=== PATIENT | male | born 1960 | race Caucasian/White ===

== ENCOUNTER 2017-06-11 18:18 | Emergency (ER) | payer SELFPAY ==
[~2017-06-11 18:18] MED LIST: CIPR500T4 PO; LORA-474 PO
[2017-06-11 18:20] VITALS: BP 168/103; PULSE 102; RESP 20; TEMP 97.8; O2SAT 96
--- NOTE | 2017-06-11 18:39 | PD ---
Physical Exam Time Seen by Provider: 18:37 Narrative 56 y/o male here for evaluation of several months duration of a yellow- appearing tongue as well as reddened skin on the neck for several months. This has been worked up by Dr. Gandhi as an outpatient and he reports no dx has been made. Vital signs reviewed. Seen at triage desk. Awaiting bed placement. Data Data Last Documented VS Vital Signs Date Time Temp Pulse Resp B/P Pulse Ox O2 Delivery O2 Flow Rate FiO2 06/11/17 18:20 97.8 102 20 168/103 96 Room Air [facility] Medical Record Reviewed: Yes Supervised Visit with MARISOL: No Solomon Liu Jun 11, 2017 18:39
[2017-06-11] MEDS ORDERED: LORA-474 PO (18:44)
--- NOTE | 2017-06-11 19:10 | PD ---
HPI Chief Complaint: Oral / Dental Pain or Problem Time Seen by Provider: 18:41 Travel History International Travel<30 days: No Contact w/Intl Traveler<30days: No Traveled to known affect area: No History of Present Illness HPI 56-year-old male here for evaluation of yellow tongue as well as redness to his bilateral legs and right neck. Patient reports that the symptoms have been going on for the last several months. He reports that he was seen by infectious disease Dr. Gandhi. He states that she started him on fluconazole which seemed to help his tongue appearance slightly, however it did not completely resolve. He reports that she tested him for HIV and it was negative. He denies any HIV exposures. He also presents with blood work that was done on 03/12/17 and shows a completely normal CBC and CMP. He is frustrated because he would like the yellow coloration to his tongue to go away. He is a nonsmoker. PFSH Past Medical History Anxiety: Yes (STATES,HAS BEEN TOLD HE HAS ANXIETY) Diminished Hearing: No Psychiatric: Yes Past Surgical History Surgical History: No Previous Surgery Social History Alcohol Use: No Tobacco Use: No Substance Use: No Allergies-Medications (Allergen,Severity, Reaction): Coded Allergies: No Known Allergies (Verified , 06/11/17) Reported Meds & Prescriptions Reported Meds & Active Scripts Active Reported Ativan (Lorazepam) 1 Mg Tab 1 Mg PO Q6H PRN Review of Systems Except as stated in HPI: all other systems reviewed are Neg Physical Exam Narrative GENERAL: Well-developed, well-nourished, comfortable, no acute distress. SKIN: Focused skin assessment warm/dry. No rash. No warmth or erythema. No jaundice. HEAD: Atraumatic. Normocephalic. EYES: Pupils equal and round. No scleral icterus. No injection or drainage. ENT: Mucous membranes pink and moist. Tongue with slight yellowish hue centrally. No ulcerations. Normal pharynx. CARDIOVASCULAR: Regular rate and rhythm. GI: Soft, nontender, nondistended. MUSCULOSKELETAL: No obvious deformities. No clubbing. No cyanosis. No edema. NEUROLOGICAL: Awake and alert. No obvious cranial nerve deficits. Motor grossly within normal limits. Normal speech. PSYCHIATRIC: Appropriate mood and affect; insight and judgment normal. Data Data Last Documented VS Vital Signs Date Time Temp Pulse Resp B/P Pulse Ox O2 Delivery O2 Flow Rate FiO2 7/20/17 18:20 97.8 102 20 168/103 96 Room Air MDM Medical Decision Making Medical Screen Exam Complete: Yes Emergency Medical Condition: Yes Differential Diagnosis Yellow tongue/ skin cells, leukoplakia, hepatitis unlikely, candidiasis Narrative Course This is a 56-year-old male who is here concerned because his tongue appears yellow. This has been going on for several months. He was seen by infectious disease doctor Jv who will doubt HIV. She treated him for Hansa with fluconazole, however his symptoms are not completely resolve. He has lab work from 03/12/17 which shows a normal CBC, CMP, and LFTs. He denies alcohol or tobacco use. Differential includes benign/ skin cells with enlarged taste buds, leukoplakia, candidiasis. Candidiasis is less likely. There is no scleral icterus or jaundice on exam. Patient was also concerned about what he believes to be erythema on his bilateral legs and neck that has also been going on for the last 7 months. On my exam there is no apparent erythema, petechiae, or rash. Patient was reassured. He is stable for discharge home with outpatient follow-up with a primary care physician this week. He states he is having a colonoscopy and endoscopy performed in 2 weeks. I will also given the name of the ENT specialist recreational counselor to follow-up with. He was informed on when to return to the emergency department. He verbalizes understanding and agreement with plan. Diagnosis Primary Impression: Tongue abnormality Referrals: Luis A Álvarez MD 3 days Primary Care Physician 3 days Additional Instructions: Follow-up with a primary care physician this week. Follow-up with ENT Dr. Álvarez or an ENT specialist of your choice this week. Return to the emergency department for worsening symptoms or any other concerns. Disposition: 01 DISCHARGE HOME Condition: Stable Alonso Magdaleno MD Jun 11, 2017 19:10
== END 2017-06-11 19:31 | disposition home or self-care (01) ==
LOC: NEPD 18:18
DX: K14.8 Other diseases of tongue (principal)
CPT/HCPCS: 99281

== ENCOUNTER 2017-09-11 23:19 | Emergency (ER) | payer SELFPAY ==
[~2017-09-11] VITALS: Ht 170.2 cm; Wt 98.0 kg
[~2017-09-11 23:19] MED LIST changes: -CIPR500T4 PO
[2017-09-11 23:21] VITALS: BP 114/84; PULSE 122; RESP 15; TEMP 97.5; O2SAT 94
[2017-09-11 23:59] VITALS: BP 118/73; PULSE 95; RESP 14; O2SAT 95
--- NOTE | 2017-09-12 00:10 | PD ---
HPI Chief Complaint: Eye Problems/Injury Time Seen by Provider: 23:56 Travel History International Travel<30 days: No Contact w/Intl Traveler<30days: No Traveled to known affect area: No History of Present Illness HPI Patient is a 56-year-old male presenting to emergency for evaluation of possible fungi seem he. Patient states that he had been diagnosed with candidiasis in his groin and on his toe last year and he believes that it is seeping into his bloodstream. Patient states that he also has tearing from his eye. He has been seen and evaluated by his word processor who prescribed eyedrops which she has been using. He states that his doctor discharged him from the practice. Patient stated that no one believes that this is what's wrong with him. Patient reports that the symptoms have been ongoing for a year. PFSH Past Medical History Anxiety: Yes (STATES,HAS BEEN TOLD HE HAS ANXIETY) Diminished Hearing: No Psychiatric: Yes Past Surgical History Surgical History: No Previous Surgery Social History Alcohol Use: No Tobacco Use: No Substance Use: No Allergies-Medications (Allergen,Severity, Reaction): Coded Allergies: No Known Allergies (Verified , 09/11/17) Reported Meds & Prescriptions Reported Meds & Active Scripts Active Reported Ativan (Lorazepam) 1 Mg Tab 1 Mg PO Q6H PRN Review of Systems Except as stated in HPI: all other systems reviewed are Neg Physical Exam Narrative GENERAL: Well-developed, well-nourished, alert male. Resting comfortably in no acute distress. SKIN: Warm and dry. Rash or lesions. HEAD: Atraumatic. Normocephalic. EYES: Pupils equal and round. No scleral icterus. No injection or drainage. ENT: No nasal bleeding or discharge. Mucous membranes pink and moist. NECK: Trachea midline. No JVD. CARDIOVASCULAR: Regular rate and rhythm. RESPIRATORY: No accessory muscle use. Clear to auscultation. Breath sounds equal bilaterally. GASTROINTESTINAL: Abdomen soft, non-tender, nondistended. Hepatic and splenic margins not palpable. MUSCULOSKELETAL: Extremities without clubbing, cyanosis, or edema. No obvious deformities. NEUROLOGICAL: Awake and alert. No obvious cranial nerve deficits. Motor grossly within normal limits. Five out of 5 muscle strength in the arms and legs. Normal speech. PSYCHIATRIC: Appropriate mood and affect; insight and judgment normal. Data Data Last Documented VS Vital Signs Date Time Temp Pulse Resp B/P (MAP) Pulse Ox O2 Delivery O2 Flow Rate FiO2 09/11/17 23:59 95 14 118/73 (88) 95 Room Air 09/11/17 23:21 97.5 [facility] Medical Decision Making Medical Screen Exam Complete: Yes Emergency Medical Condition: No Interpretation(s) Vital Signs Date Time Temp Pulse Resp B/P (MAP) Pulse Ox O2 Delivery O2 Flow Rate FiO2 09/11/17 23:59 95 14 118/73 (88) 95 Room Air 09/11/17 23:21 97.5 122 15 114/84 (94) 94 Room Air Differential Diagnosis Tinea versus thrush versus normal examination versus other Narrative Course Patient is a 56-year-old male that presented concerned for fungicemia. This is vital signs are stable, he believes he has had this for a year. He was discharged from his doctor's practice, likely because he will not listen to any other possible diagnoses other than the fungus in his blood. Patient appears well, his vital signs are stable. She was encouraged to establish care with a primary doctor. Patient was reassured that if that if he had fungus in his blood that he would be very sick. A medical screening exam was performed: At the time of evaluation the presenting medical condition was determined not to be of an emergent nature. The patient was given the option of receiving additional care, but declined. Patient was given options for additional community resources from which to obtain care. The Patient Has Been advised to seek medical attention for their presenting complaint. The patient has been advised to return to the ER at any time if an emergent condition develops. Diagnosis Primary Impression: Encounter for medical screening examination Condition: Stable Brandi Us Sep 12, 2017 00:10
== END 2017-09-12 01:48 | disposition left against medical advice (07) ==
LOC: NEPD 23:19
DX: H57.9 Unspecified disorder of eye and adnexa (principal)
CPT/HCPCS: 99281